=== PATIENT | male | born 1955 | race Caucasian/White ===

== ENCOUNTER → 2023-08-01 06:27 | Day surgery (SDC) | payer MEDICARE, OTHER, SELFPAY | LOC: GI 06:27 | PROVIDERS: ATTENDING PHYSICIAN Internal Medicine Gastroenterology | DX: Z12.11 Encounter for screening for malignant neoplasm of colon (principal); K64.8 Other hemorrhoids; K62.0 Anal polyp; K64.4 Residual hemorrhoidal skin tags; Z86.010 Personal history of colon polyps | CPT/HCPCS: 45380; 88305 ==